=== PATIENT | male | born 1990 | race Caucasian/White ===

== ENCOUNTER 2020-03-20 01:45 | Inpatient (IN) | payer OTHER ==
[2020-03-20] VITALS (7 sets, daily range): BP systolic 108–159; BP diastolic 62–93
[~2020-03-20] VITALS: Ht 182.9 cm; Wt 124.9 kg
--- NOTE | ~2020-03-20 | OP ---
[address] [address] OPERATIVE REPORT Name: RENARD ALFARO Room: [address] IN M.R.#: [id number] Admission: 03/20/20 Attend Phys: Matthew Lo, Discharge: Date of : 89 Report #: [id number] THIS REPORT FOR: //name// cc: LANI Ward family physician/PCP LANI Ward family physician/PCP ~ CC: LANI physician/PCP Matthew Lo DATE OF SERVICE: 03/20/2020 PREOPERATIVE DIAGNOSIS: Acute appendicitis. POSTOPERATIVE DIAGNOSIS: Acute appendicitis. OPERATION: Laparoscopic appendectomy. SURGEON: Jake Downs MD ANESTHESIA: General. ESTIMATED BLOOD LOSS: Minimal. SPECIMEN: Appendix. DESCRIPTION OF PROCEDURE: After informed consent was obtained, the patient was brought to the operating room and placed supine. SCDs were placed and working, preoperative antibiotics were administered, general anesthesia was induced. The abdomen was prepped and draped in the usual sterile fashion. A 5 mm incision was made in the left upper quadrant. A 5 mm trocar was placed under direct vision. Pneumoperitoneum was established. Right upper quadrant 12 mm port and a left lower quadrant 5 mm port was placed. The appendix was noted to be inflamed consistent with appendicitis. It was grasped and retracted anteriorly. The mesoappendix was ligated using a CAN bolanos load stapler. The base of the appendix was then stapled off with a CAN blue load stapler. It was placed into an Endopouch and removed. The fascia then at the right upper quadrant was closed with a [id number] 0 Vicryl. Skin was closed with 4-0 Monocryl. Incisions were dressed with Steri-Strips. COMPLICATIONS: None. DISPOSITION: The patient was taken to recovery in satisfactory condition. By: [id number] Downs MD /nt
[2020-03-20 02:17] LABS: ABSOLUTE BASOPHILS 0.1 thou/uL (0.0-0.2); ABSOLUTE LYMPHOCYTES 0.9 thou/uL (0.8-5.3); ABSOLUTE MONOCYTES 0.9 thou/uL (0.0-1.2); ABSOLUTE NEUTROPHILS 10.3 thou/uL (1.6-8.1); BASOPHILS 0.5 %; HEMATOCRIT 46.4 % (42.0-52.0); HEMOGLOBIN 16.1 gm/dL (14.0-18.0); LYMPHOCYTES 7.7 %; MCH 29.8 pg (26.0-34.0); MCHC 34.7 g/dL (28.0-37.0); MCV 85.9 fL (80.0-100.0); MONOCYTES 7.2 %; MPV 6.8 fl. (7.2-11.1); NUCLEATED RBCS 0 /100WBC; PLATELET COUNT* 243 thou/uL (150-400); POLYS 84.6 %; RBC 5.41 mil/uL (4.50-6.00); RDW-CV 13.2 % (10.5-14.5); WBC 12.2 thou/uL (4.0-11.0)
[2020-03-20 02:30] LABS: CALCIUM 8.4 mg/dL (8.5-10.1); CREATININE 1.1 mg/dL (0.6-1.3); POTASSIUM 3.8 mmol/L (3.5-5.1)
[2020-03-20 02:36] LABS: ALBUMIN 3.9 g/dL (3.4-5.0); TOTAL BILIRUBIN 0.7 mg/dL (<0.1-1.0); TOTAL PROTEIN 8.8 g/dL (6.4-8.2)
[2020-03-20 04:30] LABS: URINE BILIRUBIN NEGATIVE (Negative); URINE BLOOD 1+ (Negative); URINE CLARITY CLEAR; URINE COLOR YELLOW; URINE GLUCOSE-RANDOM 1+ (Negative); URINE KETONES 1+ (Negative); URINE LEUKOCYTES-REFLEX NEGATIVE (Negative); URINE NITRITE-REFLEX NEGATIVE (Negative); URINE PROTEIN NEGATIVE (Negative)
[2020-03-20 04:39] LABS: BACTERIA-REFLEX None Seen /HPF (None Seen); CASTS None Seen /LPF (None Seen); CRYSTALS None Seen /LPF (None Seen); SQUAMOUS NONE SEEN /LPF (0-3); URINE RBC 0-2 Rare /HPF (0-2); URINE WBC-REFLEX None Seen /HPF (0-5)
[2020-03-20 14:01] LABS: CALCIUM 8.3 mg/dL (8.5-10.1); CREATININE 0.9 mg/dL (0.6-1.3); POTASSIUM 3.7 mmol/L (3.5-5.1)
[2020-03-20 14:04] LABS: MAGNESIUM 1.8 mg/dL (1.8-2.4)
[2020-03-21] VITALS: BP 123/72
[2020-03-21 04:00] VITALS: BP 116/63
[2020-03-21 05:09] LABS: ABSOLUTE LYMPHOCYTES 1.7 thou/uL (0.8-5.3); ABSOLUTE MONOCYTES 0.8 thou/uL (0.0-1.2); ABSOLUTE NEUTROPHILS 8.1 thou/uL (1.6-8.1); BASOPHILS 0.1 %; HEMATOCRIT 42.3 % (42.0-52.0); HEMOGLOBIN 14.4 gm/dL (14.0-18.0); LYMPHOCYTES 15.7 %; MCH 29.5 pg (26.0-34.0); MCHC 34.1 g/dL (28.0-37.0); MCV 86.5 fL (80.0-100.0); MONOCYTES 7.7 %; MPV 7.4 fl. (7.2-11.1); NUCLEATED RBCS 0 /100WBC; PLATELET COUNT* 203 thou/uL (150-400); POLYS 76.5 %; RBC 4.89 mil/uL (4.50-6.00); RDW-CV 13.8 % (10.5-14.5); WBC 10.5 thou/uL (4.0-11.0)
[2020-03-21 05:25] LABS: APTT 30.7 Seconds (25.0-31.3); INR 1.1; PROTIME 10.9 Seconds (9.20-11.50)
[2020-03-21 05:41] LABS: ALBUMIN 2.9 g/dL (3.4-5.0); CALCIUM 8.2 mg/dL (8.5-10.1); CREATININE 1.1 mg/dL (0.6-1.3); MAGNESIUM 2.2 mg/dL (1.8-2.4); POTASSIUM 4.1 mmol/L (3.5-5.1); TOTAL BILIRUBIN 0.7 mg/dL (<0.1-1.0); TOTAL PROTEIN 7.5 g/dL (6.4-8.2)
[2020-03-21 06:29] LABS: PHOSPHORUS* 3.2 mg/dL (2.5-4.9)
[2020-03-21 08:00] VITALS: BP 133/76
[2020-03-21 12:10] VITALS: BP 122/72
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
[2020-03-21 16:17] VITALS: BP 138/84
[2020-03-21 20:00] VITALS: BP 145/85
[2020-03-22] VITALS: BP 127/70
[2020-03-22 04:00] VITALS: BP 129/81
[2020-03-22 08:00] VITALS: BP 120/81
[2020-03-22] MEDS ORDERED: ZPAK PO (08:09)
[2020-03-22] MEDS ORDERED: PREDNISONE 10 M10 MG PO (08:09)
[2020-03-22] MEDS ORDERED: HYDROCODON-ACE1 EAC7 PO (08:12)
[2020-03-22 10:12] LABS: ABSOLUTE LYMPHOCYTES 1.4 thou/uL (0.8-5.3); ABSOLUTE MONOCYTES 0.5 thou/uL (0.0-1.2); ABSOLUTE NEUTROPHILS 5.7 thou/uL (1.6-8.1); BASOPHILS 0.3 %; HEMATOCRIT 39.8 % (42.0-52.0); HEMOGLOBIN 13.8 gm/dL (14.0-18.0); LYMPHOCYTES 18.6 %; MCH 29.9 pg (26.0-34.0); MCHC 34.6 g/dL (28.0-37.0); MCV 86.4 fL (80.0-100.0); MONOCYTES 6.3 %; MPV 7.7 fl. (7.2-11.1); NUCLEATED RBCS 0 /100WBC; PLATELET COUNT* 214 thou/uL (150-400); POLYS 74.8 %; RBC 4.61 mil/uL (4.50-6.00); RDW-CV 13.5 % (10.5-14.5); WBC 7.6 thou/uL (4.0-11.0)
[2020-03-22 10:35] LABS: PHOSPHORUS* 3.5 mg/dL (2.5-4.9)
[2020-03-22 10:38] LABS: ALBUMIN 2.8 g/dL (3.4-5.0); MAGNESIUM 1.7 mg/dL (1.8-2.4); POTASSIUM 3.6 mmol/L (3.5-5.1); TOTAL BILIRUBIN 0.7 mg/dL (<0.1-1.0); TOTAL PROTEIN 7.5 g/dL (6.4-8.2)
[2020-03-22 10:44] VITALS: BP 120/81
== END 2020-03-22 12:40 | disposition home or self-care (01) | DRG 981 ==
LOC: M.ERS 01:45 → M.2W 05:06 → M.TBA-ER 05:06 → M.2W 05:44
PROVIDERS: Internal Medicine; Internal Medicine Critical Care Medicine; Personal Emergency Response Attendant; ADMIT Family Medicine; ATTEND Family Medicine
PROC: 0DTJ4ZZ Resection of Appendix, Percutaneous Endoscopic Approach (ICD-10-PCS; principal; 2020-03-20)
DX: U07.1 COVID-19 (principal); K85.90 Acute pancreatitis without necrosis or infection, unspecified; J12.89 Other viral pneumonia; K35.80 Unspecified acute appendicitis; E87.1 Hypo-osmolality and hyponatremia; E66.9 Obesity, unspecified; Z68.37 Body mass index [BMI] 37.0-37.9, adult; Z79.899 Other long term (current) drug therapy